=== PATIENT | male | born 1955 | race Caucasian/White ===

== ENCOUNTER 2021-03-07 22:19 | Emergency (ER) | payer OTHER ==
[2021-03-07 22:57] LABS: Absolute Neutrophil Ct (ANC) 5.05 (1.4-6.9); BASOPHIL % 0.2 % (0.0-0.4); Basophil (Absolute #) 0.02 (0-0.4); Eosinophil % 3.4 % (0.00-5.0); Eosinophil (Absolute #) 0.31 (0-0.5); Hematocrit 42.5 % (42-50); Hemoglobin 14.1 gm/dl (12.5-18.0); Lymphocyte (Absolute #) 2.63 (1.0-4.6); Lymphocytes % 28.8 % (24.0-44.0); Mean Cell Volume 90.6 fl (78-100); Mean Corpuscular Hemoglobin 30.1 pg (26-32); Mean Corpuscular Hgb Concent. 33.2 g/dl (32-36); Monocyte (Absolute #) 1.11 (0.0-1.3); Monocytes % 12.2 % (0.0-12.0); Neutrophil % 55.4 % (36.0-66.0); Platelet Count 229 K/mm3 (150-450); Red Blood Count 4.69 M/mm3 (4.1-5.6); Red Cell Distribution Width 13.6 % (11.5-14.0); White Blood Count 9.1 K/mm3 (4.0-10.5)
[2021-03-07 23:00] LABS: Appearance CLEAR (CLEAR); Bilirubin NEGATIVE (NEGATIVE); Blood NEGATIVE Ery/ul (0-5); Glucose NEGATIVE (NEGATIVE); Ketones NEGATIVE (NEGATIVE); Leukocyte Esterase NEGATIVE (NEGATIVE); Nitrite NEGATIVE (NEGATIVE); Protein,Urine Dip NEGATIVE (Negative); Specific Gravity 1.001 (1.005-1.025); Urobilinogen NEGATIVE mg/dL (0-1)
[2021-03-07 23:05] LABS: Bacteria NONE SEEN /HPF (NEGATIVE)
--- NOTE | 2021-03-07 23:06 | ERPHSYRPT ---
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 According to his today patient has been confused since all day. Patient also does not remember what he did 10 minutes ago. All the symptoms started around 9:30 PM today and his got concerned so he brought him to the emergency room. In the emergency room patient is alert awake oriented denies any symptoms denies any motor or sensory weakness. Timing/Duration: today Severity: mild Character of Deficits: none Deficits: no difficulties Baseline/Normal Cognition: alert oriented x 3 Current Cognition: alert but confused Associated Symptoms: denies symptoms Allergies/Adverse Reactions: No Known Drug Allergies Allergy (Verified 03/07/21 22:36) Home Medications: ALPRAZolam 0.25 MG [xanAX 0.25 MG] 0.37 mg PO DAILY 11/03/15 [History] Amlodipine Besylate/Benazepril [Amlodipine-Benazepril 5-20 mg] 1 ea PO DAILY 11/03/15 [History] Aspirin 81 mg PO DAILY 11/03/15 [History] Atorvastatin Calcium [Lipitor] 20 mg PO HS 11/03/15 [History] Clopidogrel Bisulfate 75 mg [PLAVIX 75 MG Tablet] 75 mg PO DAILY 11/03/15 [History] Metoprolol Tartrate 25 mg [Lopressor 25MG Tab] 25 mg PO DAILY 11/03/15 [History] Hx Tetanus, Diphtheria Vaccination/Date Given: No Hx Influenza Vaccination/Date Given: No Hx Pneumococcal Vaccination/Date Given: No Travel Risk - International Travel Have you traveled outside of the country in past 3 weeks: No - Coronavirus Screening Are you exhibiting any of the following symptoms?: No Close contact with a COVID-19 positive Pt in past 14-21 Days: No - Vaccine Status Have you recieved a Covid-19 vaccination: Yes [employer]p G[employer]herer: Moderna - Vaccination Dates Date of 2cond Vaccination (if applicable): unknown - Review of Systems Constitutional: No Fever, No Chills Eyes: No Symptoms Ears, Nose, & Throat: No Symptoms Respiratory: No Cough, No Dyspnea Cardiac: No Chest Pain, No Edema, No Syncope Abdominal/Gastrointestinal: No Abdominal Pain, No Nausea, No Vomiting, No Diarrhea Genitourinary Symptoms: No Dysuria Musculoskeletal: No Back Pain, No Neck Pain Skin: No Rash Neurological: Other (confusion), No Dizziness, No Focal Weakness, No Sensory Changes Psychological: No Symptoms Endocrine: No Symptoms All Other Systems: Reviewed and Negative - Past Medical History Pertinent Past Medical History: Yes Neurological History: No Pertinent History ENT History: No Pertinent History Cardiac History: High Cholesterol, Hypertension, Myocardial Infarction (OR) Respiratory History: No Pertinent History Endocrine Medical History: No Pertinent History Musculoskeletal History: No Pertinent History GI Medical History: Polyps History: No Pertinent History Psycho-Social History: No Pertinent History Male Reproductive Disorders: No Pertinent History - Past Surgical History Past Surgical History: Yes Cardiac: Cardiac Catheterization, Cardiac Stent Respiratory: No Pertinent History Gastrointestinal: No Pertinent History, Other Genitourinary: No Pertinent History Musculoskeletal: No Pertinent History Male Surgical History: No Pertinent History Other Surgical History: colonoscopy with polyps removed - Social History Smoking Status: Former smoker Exposure to second hand smoke: No Drug Use: none Patient Lives Alone: No - Nursing Vital Signs Nursing Vital Signs: Initial Vital Signs Temperature 98.6 F 03/07/21 22:37 Pulse Rate 102 H 03/07/21 22:37 Respiratory Rate 20 03/07/21 22:37 Blood Pressure 157/85 03/07/21 22:37 O2 Sat by Pulse Oximetry 97 03/07/21 22:37 - [place] Coma Scale Best Eye Response ([place]): (4) open spontaneously Best Verbal Response ([place]): (5) oriented Best Motor Response ([place]): (6) obeys commands [place] Total: 15 - Physical Exam General Appearance: no apparent distress, alert Eye Exam: bilateral eye: PERRL, EOMI Ears, Nose, Throat Exam: normal ENT inspection, moist mucous membranes Neck Exam: normal inspection, non-tender, supple Respiratory: normal breath sounds, lungs clear, airway intact, No respiratory distress Cardiovascular: regular rate/rhythm, No edema Gastrointestinal: soft, No tenderness, No distention Back Exam: normal inspection Extremity Exam: normal inspection, No pedal edema 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: 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, 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 Coordination/Gait: normal finger to nose, normal gait Skin Exam: normal color, warm, dry, No rash SpO2: 97 - Course Nursing assessment & vital signs reviewed: Yes EKG Interpreted by Me: Sinus Rhythm Rhythm Strip: Normal Sinus Rhythm - CT Exams Head CT Interpretation: Tele-radiologist Report (no acute findings) Ordered Tests: Active Orders 24 hr Category Date Time Status EKG-ER Only STAT Care 03/07/21 22:47 Active CHEST 2 VIEWS (PA AND LAT) Stat Exams 03/07/21 22:52 Taken HEAD WITHOUT CONTRAST [CT] Stat Exams 03/07/21 22:51 Taken CBC W DIFF Stat Lab 03/07/21 22:53 Completed CMP Stat Lab 03/07/21 22:53 Completed TROPONIN Q3H Lab 03/07/21 22:53 Completed TROPONIN Q3H Lab 03/08/21 02:00 Ordered TROPONIN Q3H Lab 03/08/21 05:00 Ordered TROPONIN Q3H Lab 03/08/21 08:00 Ordered TROPONIN Q3H Lab 03/08/21 11:00 Ordered UA W/RFX UR CULTURE Stat Lab 03/07/21 22:53 Completed Lab/Rad Data: Laboratory Result Diagrams 03/07/21 22:53 03/07/21 22:53 Laboratory Results 03/07/21 03/07/21 03/07/21 Range/Units 22:53 22:53 22:53 WBC (4.0-10.5) K/mm3 RBC (4.1-5.6) M/mm3 Hgb (12.5-18.0) gm/dl Hct (42-50) % MCV (78-100) fl MCH (26-32) pg MCHC (32-36) g/dl RDW (11.5-14.0) % Plt Count (150-450) K/mm3 MPV (7.5-11.0) fl Gran % (36.0-66.0) % Eos # (Auto) (0-0.5) Absolute Lymphs (auto) (1.0-4.6) Absolute Monos (auto) (0.0-1.3) Lymphocytes % (24.0-44.0) % Monocytes % (0.0-12.0) % Eosinophils % (0.00-5.0) % Basophils % (0.0-0.4) % Absolute Granulocytes (1.4-6.9) Basophils # (0-0.4) Sodium 139 (137-145) mmol/L Potassium 3.8 (3.5-5.1) mmol/L Chloride 104 (98-107) mmol/L Carbon Dioxide 24 (22-30) mmol/L Anion Gap 15.2 H (5-15) MEQ/L BUN 14 (9-20) mg/dL Creatinine 0.78 (0.66-1.25) mg/dL Estimated GFR > 60.0 ML/MIN Glucose 123 H (74-106) mg/dL Calcium 9.2 (8.4-10.2) mg/dL Total Bilirubin 0.40 (0.2-1.3) mg/dL AST 23 (17-59) U/L ALT 26 (0-50) U/L Alkaline Phosphatase 112 (38-126) U/L Troponin I < 0.012 (0.000-0.034) ng/mL Serum Total Protein 7.9 (6.3-8.2) g/dL Albumin 4.4 (3.5-5.0) g/dL Urine Color COLORLESS (YELLOW) Urine Appearance CLEAR (CLEAR) Urine pH 7.0 (5-6) Ur Specific [place] 1.001 (1.005-1.025) Urine Protein NEGATIVE (Negative) Urine Ketones NEGATIVE (NEGATIVE) Urine Blood NEGATIVE (0-5) Lm/ul Urine Nitrite NEGATIVE (NEGATIVE) Urine Bilirubin NEGATIVE (NEGATIVE) Urine Urobilinogen NEGATIVE (0-1) mg/dL Ur Leukocyte Esterase NEGATIVE (NEGATIVE) Urine WBC (Auto) NONE (0-5) /HPF Urine RBC (Auto) NONE (0-2) /HPF U Epithel Cells (Auto) NONE (FEW) /HPF Urine Bacteria (Auto) NONE SEEN (NEGATIVE) /HPF Urine Culture Reflexed NO (NO) Urine Glucose NEGATIVE (NEGATIVE) mg/dL 03/07/21 Range/Units 22:53 WBC 9.1 (4.0-10.5) K/mm3 RBC 4.69 (4.1-5.6) M/mm3 Hgb 14.1 (12.5-18.0) gm/dl Hct 42.5 (42-50) % MCV 90.6 (78-100) fl MCH 30.1 (26-32) pg MCHC 33.2 (32-36) g/dl RDW 13.6 (11.5-14.0) % Plt Count 229 (150-450) K/mm3 MPV 9.0 (7.5-11.0) fl Gran % 55.4 (36.0-66.0) % Eos # (Auto) 0.31 (0-0.5) Absolute Lymphs (auto) 2.63 (1.0-4.6) Absolute Monos (auto) 1.11 (0.0-1.3) Lymphocytes % 28.8 (24.0-44.0) % Monocytes % 12.2 H (0.0-12.0) % Eosinophils % 3.4 (0.00-5.0) % Basophils % 0.2 (0.0-0.4) % Absolute Granulocytes 5.05 (1.4-6.9) Basophils # 0.02 (0-0.4) Sodium (137-145) mmol/L Potassium (3.5-5.1) mmol/L Chloride (98-107) mmol/L Carbon Dioxide (22-30) mmol/L Anion Gap (5-15) MEQ/L BUN (9-20) mg/dL Creatinine (0.66-1.25) mg/dL Estimated GFR ML/MIN Glucose (74-106) mg/dL Calcium (8.4-10.2) mg/dL Total Bilirubin (0.2-1.3) mg/dL AST (17-59) U/L ALT (0-50) U/L Alkaline Phosphatase (38-126) U/L Troponin I (0.000-0.034) ng/mL Serum Total Protein (6.3-8.2) g/dL Albumin (3.5-5.0) g/dL Urine Color (YELLOW) Urine Appearance (CLEAR) Urine pH (5-6) Ur Specific [place] (1.005-1.025) Urine Protein (Negative) Urine Ketones (NEGATIVE) Urine Blood (0-5) Lm/ul Urine Nitrite (NEGATIVE) Urine Bilirubin (NEGATIVE) Urine Urobilinogen (0-1) mg/dL Ur Leukocyte Esterase (NEGATIVE) Urine WBC (Auto) (0-5) /HPF Urine RBC (Auto) (0-2) /HPF U Epithel Cells (Auto) (FEW) /HPF Urine Bacteria (Auto) (NEGATIVE) /HPF Urine Culture Reflexed (NO) Urine Glucose (NEGATIVE) mg/dL - Progress Progress: improved, re-examined (no neuro deficits) Counseled pt/family regarding: lab results, diagnosis, need for follow-up (with Dr Bishop on tuesday), rad results - Departure Departure Disposition: Home Clinical Impression: TIA (transient ischemic attack) Condition: Stable Critical Care Time: Yes Critical Care Time(excluding separately billable procedures): Critical 30-74 mins Referrals: MARIETTA BISHOP MD [Primary Care Provider] - Follow Up with PCP/3 days (follow up on tuesday for further work up including MRI.) Instructions: Transient Ischemic Attack (DC) Additional Instructions: You were seen in the emergency room for confusion. We have done complete blood count comprehensive metabolic panel troponin EKG chest x-ray as well as CT of the head and are all unremarkable. So with your presentation to the emergency room it appears that you have a mini strokelike features that call transient ischemic attack and has resolved while you came to the ER. At this point of time you do not have any focal neurological deficit but it is important that you follow-up with your primary care physician on Tuesday and you will require further work-up to prevent future episodes. So please make an appointment on Tuesday and see your primary care physician. Discharge/Care Plan VIANEY TAN was seen on 03/07/21 in the Emergency Room. The patient was counseled regarding Diagnosis,Lab results, Imaging studies, need for follow up and when to return to the Emergency Room. Prescriptions given: Discharge Note I have spoken with the patient and/or caregivers. I have explained the patient's condition, diagnosis and treatment plan based on the information available to me at this time. I have answered the patient's and/or caregiver's questions and addressed any concerns. The patient and/or caregivers have as good understanding of the patient's diagnosis, condition and treatment plan as can be expected at this point. The vital signs have been stable. The patient's condition is stable and appropriate for discharge from the emergency department. The patient will pursue further outpatient evaluation with the primary care physician or other designated or consulting physician as outlined in the discharge instructions. The patient and/or caregivers are agreeable to this plan of care and follow-up instructions have been explained in detail. The patient and/or caregivers have received these instruction. The patient/and or caregivers are aware that any significant change in condition or worsening of symptoms should prompt an immediate return to this or the closest emergency department or call 911. ERNESTOVIANEY PALENCIA was seen on 03/07/21 n the Emergency Room. At that time you were treated for an emergent condition, during your visit Laboratory, Radiology and/or other procedures may have been ordered. It is very important that you follow-up with your Primary Care Physician MARIETTA BISHOP within the next 24- 48 hours to review your Emergency Room visit and the final results of testing that was ordered. Some test results such as Urine Cultures, Blood Cultures, and other cultures if ordered will not be finalized for 24-48 hours. If you do not have a Primary Care Provider please call the medical records department at [phone] ext [phone] to obtain a copy of your results or you may sign into our patient portal to obtain these results by visiting us @ [email or web address] and completing the following steps: 1. Click on the Patient Portal link 2. Click the Patient Self Enrollment Link to complete the enrollment form and entering your 3. Once the enrollment form is completed you will receive an email with a temporary ID and password at the email address you provided. 4. Next choose a user name and password. Your user name must be at least 4 characters long and your password must be at least 4 characters long. 5. Choose a security question from the list and provide your answer to the question. If you already have signed into the Health Portal you may access your Health Care Information 15/11 by the following steps: 1. Login to our website @ [email or web address] 2. Enter your original user name and password. FAQS The [facility] Health Portal is an online tool that contains your Lab Results, Radiology Reports, Visit History, Discharge Instructions and Health Summary Lab and Radiology Results will not be available for 72 hours on the portal. The Portal is a secure site, passwords are encryted and URLs are re-written so they cannot be copied and pasted. You and authorized family members are the only ones who can access your Portal. Also there is a timeout feature that protects your information if you leave the Portal page open. If you have technical difficulty please use the Contact Us link on the page this will allow you to submit any questions you have regarding the Portal or you may contact the Medical Record Department at [phone].
[2021-03-07 23:08] LABS: ALBUMIN 4.4 g/dL (3.5-5.0); ALKALINE PHOSPHATASE 112 U/L (38-126); ANION GAP 15.2 MEQ/L (5-15); BLOOD UREA NITROGEN 14 mg/dL (9-20); CHLORIDE 104 mmol/L (98-107); Calcium 9.2 mg/dL (8.4-10.2); Carbon Dioxide 24 mmol/L (22-30); Creatinine 1 0.78 mg/dL (0.66-1.25); EST GLOMERULAR FILTRATION RATE > 60.0 ML/MIN; Glucose 123 mg/dL (74-106); Potassium 3.8 mmol/L (3.5-5.1); SGOT/AST 23 U/L (17-59); SGPT/ALT 26 U/L (0-50); SODIUM 139 mmol/L (137-145); Total Protein 7.9 g/dL (6.3-8.2)
--- NOTE | 2021-03-08 08:10 | XRAY ---
Indication: Confusion. Comparison: None PA/lateral chest obtained. Posterior gutters not included on lateral view. Visualized lungs hyperinflated and clear. Heart and mediastinal structures within normal limits. Bony thorax intact with mild degenerative changes. Impression: Limited nonacute hyperinflated chest.
--- NOTE | 2021-03-08 08:10 | XRAY ---
Indication: Confusion. Multiple contiguous axial images obtained through the head without contrast. Comparison: None Age-appropriate global atrophy. No acute intracranial hemorrhage, abnormal extra-axial fluid collection, or mass effect. Fourth ventricle is midline without hydrocephalus. Bony calvarium intact. Visualized paranasal sinuses and mastoid air cells are clear. Impression: Negative CT head without contrast exam. Comment: Preliminary interpretation made by [facility]. No critical discrepancy.
== END 2021-03-07 23:55 | disposition home or self-care (01) ==
LOC: ED 22:19
DX: G45.9 Transient cerebral ischemic attack, unspecified (principal); Z79.82 Long term (current) use of aspirin; Z79.899 Other long term (current) drug therapy; I25.10 Atherosclerotic heart disease of native coronary artery without angina pectoris; I10 Essential (primary) hypertension; Z95.1 Presence of aortocoronary bypass graft; Z87.891 Personal history of nicotine dependence; Z79.01 Long term (current) use of anticoagulants
CPT/HCPCS: 36000; 36415; 70450; 71046; 80053; 81001; 84484; 85025; 93005; 99284; 99291

== ENCOUNTER 2022-01-07 05:53 | Day surgery (SDC) | payer BC, OTHER ==
[2022-01-07] MEDS ORDERED: Lactated Ringers 1,000 ML IV SCH (06:30)
[2022-01-07] MEDS ORDERED: DIPRIVAN 200 MG/20 ML IV ONE ×2 (07:32→07:58)
[2022-01-07] MEDS ORDERED: Xylocaine-Mpf 2% 5 Ml Vial ONE (07:32)
[2022-01-07 09:06] VITALS: BP 153/86; PULSE 68; O2SAT 97
--- NOTE | 2022-01-07 10:34 | OP ---
SURGERY DATE/TIME: 01/07/2022 0742 PREOPERATIVE DIAGNOSIS: History of colon polyps. POSTOPERATIVE DIAGNOSES: 1) Colon polyps x2. 2) Mild colitis in the ascending colon. PROCEDURE: Colonoscopy. SURGEON: Mike Mtz M.D. ANESTHESIA: MAC by Adán Land CRNA. ESTIMATED BLOOD LOSS: Minimal. SPECIMENS: There were two hot forceps polypectomies, one from the splenic flexure, one from the transverse colon and random cold forceps biopsy of the ascending colon from area of colitis. DESCRIPTION OF PROCEDURE: After informed written consent was obtained, the patient was taken to the endoscopy suite. He had anesthesia was titrated to desired level of consciousness. Digital rectal exam showed normal sphincter tone and no internal lesions. The scope was inserted into the rectum and sequentially the entire colonic mucosa was traversed. The level of cecum was reached and verified with direct visualization of the ileocecal valve. Upon withdrawal careful mucosal inspection revealed a sessile polyp in the transverse colon which was grasped with forceps, cauterized and removed in its entirety. The same was performed on a polyp in the splenic flexure level upon entry. There were also some nonspecific inflammatory changes in the segment of the ascending colon. Cold forceps biopsies were taken from lead customer service representative area. There was no bleeding, no ulceration or other suspicious lesions. Prior to withdrawal retroflexion showed no internal lesions. The scope was removed. The patient was transferred to the recovery room in good condition.
== END 2022-01-07 09:07 | disposition home or self-care (01) ==
LOC: SDC 05:53
PROVIDERS: ATTEND Family Medicine
DX: Z09 Encounter for follow-up examination after completed treatment for conditions other than malignant neoplasm (principal); Z86.010 Personal history of colon polyps; K63.5 Polyp of colon; K52.9 Noninfective gastroenteritis and colitis, unspecified
CPT/HCPCS: J2704

== ENCOUNTER 2023-12-27 06:28 | Observation (INO) | payer BC ==
[2023-12-27] MEDS ORDERED: solu-MEDROL ONE (06:55)
[2023-12-27] MEDS ORDERED: Sterile H2O 10 ml IJ ONE ×2 (06:55→17:58)
[2023-12-27] MEDS: solu-MEDROL 125 MG, Sterile H2O 10 ml 2 ML IV ONE (06:55)
--- NOTE | 2023-12-27 06:58 | ERPHSYRPT ---
- History of Present Illness Time Seen by Provider: 12/27/23 06:53 Source: patient Exam Limitations: no limitations Patient Subjective Stated Complaint: pt states he has been having shortness of breath since last night. states he has gas in his stomach and has trouble taking a deep breath. denies pain, but states he does have pressure in the epigastric area. has an occasional non productive cough that started yesterday. Triage Nursing Assessment: pt alert and oriented, answers questions approp. pt ambualtes into room with steady gait. pt short of breath on arrival. o2 sat 86 on room air and increaed to 94 on 3l per nasal can. lung sounds clear on lt, diminished and fine crackles noted on rt. Physician History: Patient is a 68-year-old male presents to our emergency department for evaluation of shortness of breath. Shortness of breath started yesterday at approximately 7 PM after using bleach to clean the basement. Patient had dinner after cleaning so he attributed his shortness of breath to stomach gas. Shortness of breath has been continuous. Patient awoke early this morning with shortness of breath. Upon arrival to emergency department patient was hypoxic. Patient was placed on 2 L nasal cannula and shortness of breath improved. No associated chest pain. No nausea vomiting or diaphoresis. Symptoms are constant. Symptoms are moderate in intensity. Activity worsens symptoms. at bedside. They voiced no other complaints or concerns at this time. Portions of this note were created with voice recognition technology. There may be grammatical, spelling, punctuation or sound alike errors Timing/Duration: yesterday Activities at Onset: activity Severity of Dyspnea-Max: moderate Severity of Dyspnea-Current: moderate Possible Cause: irritant gases exposure Modifying Factors: Improves With: activity Associated Symptoms: denies symptoms Allergies/Adverse Reactions: No Known Drug Allergies Allergy (Verified 12/27/23 06:51) Home Medications: ALPRAZolam 0.25 MG [xanAX 0.25 MG] 0.25 mg PO TID PRN 11/03/15 [History] Amlodipine Besylate/Benazepril [Amlodipine-Benazepril 5-20 mg] 1 ea PO DAILY 11/03/15 [History] Aspirin 81 mg PO DAILY 11/03/15 [History] Atorvastatin Calcium [Lipitor] 20 mg PO HS 11/03/15 [History] Metoprolol Tartrate 25 mg [Lopressor 25MG Tab] 25 mg PO DAILY 11/03/15 [History] Ascorbic Acid [Vitamin C] 1,000 mg PO DAILY 12/29/21 [History] Cholecalciferol (Vitamin D3) [Vitamin D3] 125 mcg PO DAILY 12/29/21 [History] Multivit-Min/FA/Lycopen/Lutein [Centrum Silver Tablet] 1 each PO DAILY 12/29/21 [History] Saw [place] 450 mg PO DAILY 12/29/21 [History] Zinc Gluconate [Zinc] 50 mg PO DAILY 12/29/21 [History] Hx Tetanus, Diphtheria Vaccination/Date Given: No Hx Influenza Vaccination/Date Given: No Hx Pneumococcal Vaccination/Date Given: No Immunizations Up to Date: No Travel Risk - International Travel Have you traveled outside of the country in past 3 weeks: No - Emerging Infectious Disease Are you exhibiting symptoms associated with any current EIDs: Yes Symptoms: Cough: New Onset, Shortness of Breath - Review of Systems Constitutional: No Symptoms, No Fever, No Chills Eyes: No Symptoms Ears, Nose, & Throat: No Symptoms Respiratory: No Symptoms, No Cough, No Dyspnea Cardiac: No Symptoms, No Chest Pain, No Edema, No Syncope Abdominal/Gastrointestinal: No Symptoms, No Abdominal Pain, No Nausea, No Vomit ing, No Diarrhea Genitourinary Symptoms: No Symptoms, No Dysuria Musculoskeletal: No Symptoms, No Back Pain, No Neck Pain Skin: No Symptoms, No Rash Neurological: No Symptoms, No Dizziness, No Focal Weakness, No Sensory Changes Psychological: No Symptoms Endocrine: No Symptoms Hematologic/Lymphatic: No Symptoms Immunological/Allergic: No Symptoms All Other Systems: Reviewed and Negative - Past Medical History Pertinent Past Medical History: Yes Neurological History: No Pertinent History, Other ENT History: No Pertinent History Cardiac History: High Cholesterol, Hypertension, Myocardial Infarction (MT) Respiratory History: No Pertinent History Endocrine Medical History: No Pertinent History Musculoskeletal History: No Pertinent History, Osteoarthritis GI Medical History: Polyps History: No Pertinent History Psycho-Social History: No Pertinent History Male Reproductive Disorders: No Pertinent History Other Medical History: PMH: BOARDERLINE DM. neuro- transient global. PSH: NONE - Past Surgical History Past Surgical History: Yes Cardiac: Cardiac Catheterization, Cardiac Stent Respiratory: No Pertinent History Gastrointestinal: No Pertinent History, Other Genitourinary: No Pertinent History Musculoskeletal: No Pertinent History Male Surgical History: No Pertinent History Other Surgical History: colonoscopy with polyps removed - Social History Smoking Status: Former smoker Exposure to second hand smoke: No Drug Use: none Patient Lives Alone: No - Social Determinants of Health Will the patient participate in the screening: Yes Do you worry about a steady place to live?: No Do you have any problems with any of the following?: No known problems In the past 12 months,have you had to go without utilities?: No Transportation Issues: No Has anyone in your support network made you feel unsafe?: No Have you or anyone in your house had to go without enough: No - Nursing Vital Signs Nursing Vital Signs: Initial Vital Signs Temperature 98.3 F 12/27/23 06:33 Pulse Rate 103 H 12/27/23 06:33 Respiratory Rate 18 12/27/23 06:33 Blood Pressure 138/78 12/27/23 06:33 O2 Sat by Pulse Oximetry 86 L 12/27/23 06:33 Pain Scale Pain Intensity 2 - Physical Exam General Appearance: no apparent distress, alert Eye Exam: PERRL/EOMI, eyes nml inspection Ears, Nose, Throat Exam: hearing grossly normal Neck Exam: normal inspection, supple, full range of motion Respiratory Exam: airway intact, diminished breath sounds, crackles/rales (Crackles right lung field. Diminished breath sounds throughout), No respiratory distress Cardiovascular/Chest Exam: normal heart sounds, regular rate/rhythm Abdominal/Gastrointestinal Exam: soft, No tenderness, No distention, No mass Extremity Exam: non-tender, normal range of motion, normal inspection, no calf tenderness, no pedal edema Neurologic Exam: alert, oriented x 3, cooperative, voucher examiner II-XII nml as tested, normal mood/affect, sensation nml, No motor deficits Skin Exam: normal color, warm, No dry SpO2 Interpretation: normal SpO2: 94 O2 Delivery: Room Air - Course Nursing assessment & vital signs reviewed: Yes EKG Interpreted by Me: RATE (105), Sinus Tach, NORMAL AXIS, NORMAL INTERVALS, NORMAL QRS Ordered Tests: Active Orders 24 hr Category Date Time Status Flight Attendant STAT Care 12/27/23 06:52 Active EKG-ER Only STAT Care 12/27/23 06:51 Active IV Insertion STAT Care 12/27/23 06:51 Active Pulse Oximetry (ED) STAT Care 12/27/23 06:51 Active CHEST WITH CONTRAST [CT] Stat Exams 12/27/23 07:49 Completed BLOOD CULTURE Stat Lab 12/27/23 07:14 Received CBC W DIFF Stat Lab 12/27/23 06:55 Completed CMP Stat Lab 12/27/23 06:55 Completed D-DIMER QUANTITATIVE Stat Lab 12/27/23 06:55 Completed TROPONIN Q4H Lab 12/27/23 06:55 Completed TROPONIN Q4H Lab 12/27/23 11:00 Received TROPONIN Q4H Lab 12/27/23 15:00 Ordered Respiratory Therapy Assessment DAILY RT 12/27/23 07:09 Active Transfer Order Routine Transfer 12/27/23 Ordered Medication Summary Discontinued Medications Generic Name Dose Route Start Last Admin Trade Name Freq PRN Reason Stop Dose Admin Albuterol Sulfate 2.5 mg 12/27/23 06:51 12/27/23 07:06 Albuterol Sulfate 2.5 Mg/3 Ml Neb IH 12/27/23 06:52 2.5 mg STAT ONE Administration Albuterol Sulfate Confirm 12/27/23 07:04 Albuterol Sulfate 2.5 Mg/3 Ml Neb Administered 12/27/23 07:05 Dose 2.5 mg IH .STK-MED ONE Methylprednisolone Sodium 0 mg 12/27/23 06:51 12/27/23 06:55 Succinate 125 mg/ Sterile IV 12/27/23 06:52 125 mg Water 2 ml STAT ONE Administration Famotidine 20 mg 12/27/23 07:01 12/27/23 07:15 Famotidine 20 Mg/1 Vial IV 12/27/23 07:02 20 mg STAT ONE Administration Famotidine Confirm 12/27/23 07:13 Famotidine 20 Mg/1 Vial Administered 12/27/23 07:14 Dose 20 mg IV .STK-MED ONE Ceftriaxone Sodium 2 gm in 100 mls @ 200 mls/hr 12/27/23 09:46 12/27/23 10:53 Rocephin 2 Gm/100 Ml Nacl IV 12/27/23 10:15 200 ml/hr STAT ONE 200 mls/hr Administration Azithromycin 500 mg in 250 mls @ 250 mls/hr 12/27/23 09:46 12/27/23 10:48 Zithromax 500 Mg/ 250 Ml Nacl Premix IV 12/27/23 10:45 250 ml/hr STAT STA 250 mls/hr Administration Ceftriaxone Sodium Confirm 12/27/23 09:59 Rocephin 2 Gm/100 Ml Nacl Administered 12/27/23 10:00 Dose 2 gm in 100 mls @ ud IV .STK-MED ONE Azithromycin Confirm 12/27/23 10:46 Zithromax 500 Mg/ 250 Ml Nacl Premix Administered 12/27/23 10:47 Dose 500 mg in 250 mls @ ud IV .STK-MED ONE Methylprednisolone Sodium Succinate Confirm 12/27/23 06:55 Methylprednis Sod Succ 125 Mg/2 Ml Vial Administered 12/27/23 06:56 Dose 125 mg .ROUTE .STK-MED ONE Sterile Water Confirm 12/27/23 06:55 Water For Injection,Sterile 10 Ml Vial Administered 12/27/23 06:56 Dose 10 ml IJ .STK-MED ONE Lab/Rad Data: Laboratory Result Diagrams 12/27/23 06:55 12/27/23 06:55 Laboratory Results 12/27/23 12/27/23 12/27/23 Range/Units 07:14 06:55 06:55 WBC (4.23-9.07) x10^3/uL RBC (4.63-6.08) x10^6/uL Hgb (13.7-17.5) g/dL Hct (40.1-51.0) % MCV (79.0-92.2) fL MCH (25.7-32.2) pg MCHC (32.3-36.5) g/dL RDW (11.6-14.4) % Plt Count (163-337) x10^3/uL MPV (9.4-12.4) fL Gran % (34.0-67.9) % Immature Gran % (Auto) (0.001-0.429) % Nucleat RBC Rel Count (0.00-0.2) % Eos # (Auto) (0.04-0.54) x10^3/uL Immature Gran # (Auto) (0.001-0.031) x10^3u/L Absolute Lymphs (auto) (1.32-3.57) x10^3/uL Absolute Monos (auto) (0.30-0.82) x10^3/uL Absolute Nucleated RBC (0.00-0.012) x10^3u/L Lymphocytes % (21.8-53.1) % Monocytes % (5.3-12.2) % Eosinophils % (0.8-7.0) % Basophils % (0.2-1.2) % Absolute Granulocytes (1.78-5.38) x10^3/uL Basophils # (0.01-0.08) x10^3/uL D-Dimer 0.64 H* (0.0-0.50) mg/L Sodium (135-145) mmol/L Potassium (3.5-5.1) mmol/L Chloride (98-107) mmol/L Carbon Dioxide (22-30) mmol/L Anion Gap (5-15) MEQ/L BUN (9-20) mg/dL Creatinine (0.66-1.25) mg/dL Estimated GFR ML/MIN Glucose (74-106) mg/dL Calcium (8.4-10.2) mg/dL Total Bilirubin (0.2-1.3) mg/dL AST (17-59) U/L ALT (0-50) U/L Alkaline Phosphatase (38-126) U/L Troponin I < 0.012 (0.000-0.033) ng/mL Serum Total Protein (6.3-8.2) g/dL Albumin (3.5-5.0) g/dL Influenza Type A Ag NEGATIVE (NEGATIVE) Influenza Type B Ag NEGATIVE (NEGATIVE) RSV (PCR) NEGATIVE (NEGATIVE) SARS-CoV-2 (PCR) NEGATIVE (NEGATIVE) 12/27/23 12/27/23 Range/Units 06:55 06:55 WBC 14.1 H (4.23-9.07) x10^3/uL RBC 4.68 (4.63-6.08) x10^6/uL Hgb 13.9 (13.7-17.5) g/dL Hct 40.9 (40.1-51.0) % MCV 87.4 (79.0-92.2) fL MCH 29.7 (25.7-32.2) pg MCHC 34.0 (32.3-36.5) g/dL RDW 13.2 (11.6-14.4) % Plt Count 244 (163-337) x10^3/uL MPV 9.7 (9.4-12.4) fL Gran % 83.0 H (34.0-67.9) % Immature Gran % (Auto) 0.4 (0.001-0.429) % Nucleat RBC Rel Count 0.0 (0.00-0.2) % Eos # (Auto) 0.06 (0.04-0.54) x10^3/uL Immature Gran # (Auto) 0.06 H (0.001-0.031) x10^3u/L Absolute Lymphs (auto) 1.21 L (1.32-3.57) x10^3/uL Absolute Monos (auto) 1.03 H (0.30-0.82) x10^3/uL Absolute Nucleated RBC 0.00 (0.00-0.012) x10^3u/L Lymphocytes % 8.6 L (21.8-53.1) % Monocytes % 7.3 (5.3-12.2) % Eosinophils % 0.4 L (0.8-7.0) % Basophils % 0.3 (0.2-1.2) % Absolute Granulocytes 11.72 H (1.78-5.38) x10^3/uL Basophils # 0.04 (0.01-0.08) x10^3/uL D-Dimer (0.0-0.50) mg/L Sodium 139 (135-145) mmol/L Potassium 3.8 (3.5-5.1) mmol/L Chloride 105 (98-107) mmol/L Carbon Dioxide 22 (22-30) mmol/L Anion Gap 15.2 H (5-15) MEQ/L BUN 15 (9-20) mg/dL Creatinine 0.88 (0.66-1.25) mg/dL Estimated GFR 93.7 ML/MIN Glucose 170 H (74-106) mg/dL Calcium 9.5 (8.4-10.2) mg/dL Total Bilirubin 1.20 (0.2-1.3) mg/dL AST 30 (17-59) U/L ALT 26 (0-50) U/L Alkaline Phosphatase 110 (38-126) U/L Troponin I (0.000-0.033) ng/mL Serum Total Protein 7.5 (6.3-8.2) g/dL Albumin 4.2 (3.5-5.0) g/dL Influenza Type A Ag (NEGATIVE) Influenza Type B Ag (NEGATIVE) RSV (PCR) (NEGATIVE) SARS-CoV-2 (PCR) (NEGATIVE) - Progress Progress: improved Air Movement: good Progress Note: 68-year-old male presents to the emergency department for evaluation of shortness of breath. Physical exam reveals crepitation in the right lung field. Upon arrival patient was hypoxic. Supplemental oxygen placed. Patient is not require oxygen normally. Workup reveals a leukocytosis. D-dimer positive. CTA chest reveals no PE however there is a large left atrial mass versus artifact. Bilateral pleural effusions right greater than left. Bilateral airspace disease with a small hiatal hernia. Patient require hospitalization for antibiotic therapy, echocardiogram and further workup of the pleural effusion and his atrial mass. Plan of care discussed with patient. He agrees to admission [facility] for further evaluation and treatment. Portions of this note were created with voice recognition technology. There may be grammatical, spelling, punctuation or sound alike errors Complexity problem addressed is moderate acute complicated. No critical care time. Complexity of data reviewed and analyzed is extensive. Test ordered test reviewed results analyzed and correlated clinically with history and physical exam. Risk of complication and or risk of morbidity/mortality of patient management is high. Patient requires hospitalization for further evaluation and treatment. Vital stable. Time spent to admit patient approximately 20 minutes. Plan of care established for shared decision making. No social determinants of health present impede follow-up. Portions of this note were created with voice recognition technology. There may be grammatical, spelling, punctuation or sound alike errors 12/27/23 09:[address] Calero 11:28 AM 12/27/23 11:32 Blood Culture(s) Obtained: Yes Antibiotics given: No Counseled pt/family regarding: lab results, diagnosis, rad results - Departure Departure Disposition: Observation Clinical Impression: SOB (shortness of breath), Hypoxia, Atrial mass, Bilateral pneumonia, Leukocytosis, Pleural effusion Condition: Stable Critical Care Time: No Referrals: MARIETTA BISHOP MD [Primary Care Provider] - Follow up/PCP as directed
[2023-12-27] MEDS ORDERED: PROVENTIL 2.5 MG/3 ML NEB IH ONE (07:04)
[2023-12-27] MEDS: PROVENTIL 2.5 MG/3 ML NEB IH ONE (07:06)
[2023-12-27] MEDS ORDERED: Pepcid 20 MG VIAL IV ONE (07:13)
[2023-12-27] MEDS: Pepcid 20 MG VIAL IV ONE (07:15)
[2023-12-27 07:19] LABS: Absolute Neutrophil Ct (ANC) 11.72 x10^3/uL (1.78-5.38); BASOPHIL % 0.3 % (0.2-1.2); Basophil (Absolute #) 0.04 x10^3/uL (0.01-0.08); Eosinophil % 0.4 % (0.8-7.0); Eosinophil (Absolute #) 0.06 x10^3/uL (0.04-0.54); Hematocrit 40.9 % (40.1-51.0); Hemoglobin 13.9 g/dL (13.7-17.5); IMMATURE GRAN # 0.06 x10^3u/L (0.001-0.031); IMMATURE GRAN % 0.4 % (0.001-0.429); Lymphocyte (Absolute #) 1.21 x10^3/uL (1.32-3.57); Lymphocytes % 8.6 % (21.8-53.1); Mean Cell Volume 87.4 fL (79.0-92.2); Mean Corpuscular Hemoglobin 29.7 pg (25.7-32.2); Mean Platelet Volume 9.7 fL (9.4-12.4); Monocyte (Absolute #) 1.03 x10^3/uL (0.30-0.82); Monocytes % 7.3 % (5.3-12.2); Platelet Count 244 x10^3/uL (163-337); Red Blood Count 4.68 x10^6/uL (4.63-6.08); Red Cell Distribution Width 13.2 % (11.6-14.4); White Blood Count 14.1 x10^3/uL (4.23-9.07)
[2023-12-27 07:33] LABS: ALBUMIN 4.2 g/dL (3.5-5.0); ANION GAP 15.2 MEQ/L (5-15); BILIRUBIN,TOTAL 1.2 mg/dL (0.2-1.3); Calcium 9.5 mg/dL (8.4-10.2); Creatinine 1 0.88 mg/dL (0.66-1.25); EST GLOMERULAR FILTRATION RATE 93.7 ML/MIN; Potassium 3.8 mmol/L (3.5-5.1); Total Protein 7.5 g/dL (6.3-8.2)
[2023-12-27 07:59] LABS: INFLUENZA A NEGATIVE (NEGATIVE); INFLUENZA B NEGATIVE (NEGATIVE); RESPIRATORY SYNCTIAL VIRUS NEGATIVE (NEGATIVE); SARS-CoV-2 Xpert Express NEGATIVE (NEGATIVE)
--- NOTE | 2023-12-27 09:07 | XRAY ---
Indication: Short of breath. Elevated d-dimer. Multiple contiguous axial images obtained through the chest using 80 cc Isovue 370 contrast and PE protocol. Comparison: None Good opacification pulmonary arteries including lobar and segmental branches. Mild respiration artifact limits evaluation for pulmonary embolus. No obvious pulmonary embolus. Heart not enlarged. Query large left atrium mass versus artifact. Aorta is normal in course and caliber. No pathologic mediastinal/hilar lymphadenopathy. Small hiatal hernia. Lungs demonstrate diffuse patchy groundglass airspace disease greatest in both lower lobes. Also small bilateral pleural effusions, right greater than left. Bony thorax intact with mild/moderate degenerative changes throughout spine. Limited upper abdomen including adrenal glands are unremarkable. Impression: 1. Respiration artifact limits pulmonary embolus evaluation. No obvious pulmonary embolus. 2. Diffuse bilateral groundglass airspace disease with bilateral effusions. 3. Query large left atrium mass versus artifact. Echocardiogram recommended. 4. Chronic findings including hiatal hernia and multilevel degenerative spondylosis.
[2023-12-27] MEDS ORDERED: ROCEPHIN 2 GM/100 ML NACL 2 GM/100 ML IVPB IV ONE (09:59)
[2023-12-27] MEDS ORDERED: Zithromax 500 MG/ 250 ML NaCl Premix 500 MG/250 ML IVPB IV ONE (10:46)
[2023-12-27] MEDS: Zithromax 500 MG/ 250 ML NaCl Premix 500 MG/250 ML IVPB IV STA (10:48)
[2023-12-27] MEDS: ROCEPHIN 2 GM/100 ML NACL 2 GM/100 ML IVPB IV ONE (10:53)
--- NOTE | 2023-12-27 14:52 | PCM.HP ---
History of Present Illness - Chief Complaint Chief Complaint: Bilateral pneumonia, left atrial mass Date: 12/27/23 History of Present Illness: is a 68 year old male with a pmhx of [place], cardiac stents x 2, HTN, and HLD who presented to ED 12/27/23 with complaints of progressively worsening shortness of breath. Patient states onset was around 7 p.m last night. He states that he normally gets bloated after meals with some accompanying shortness of breath and thought this was the cause of the shortness of breath. Later that evening he began to experience chills and was awoken in the middle of the night unable to catch his breath. His pulse ox at home was registering his spo2 in the 70's which prompted to go to ED. Upon arrival to ED patient was hypoxic and tachycardic. CTA was negative for PE -demonstrating bilateral pleural effusion R>L. Diffuse bilateral groundglass airspace disease with bilateral effusions.Query large left atrium mass versus artifact. Echocardiogram recommended. Patient is RA at baseline and now requiring 2L of oxygen. Lab findings significant for leukocytosis with wbc at 14.1, GAP at 15.2. Resp. panel negative. DDimer 0.[address] negative for PE. Patient received Solumedrol, rocephin, and azithromycin in ED with noted improv ement. - Review of Systems Constitutional: Chills, Fatigue Eyes: No Symptoms Ears, Nose, & Throat: No Symptoms Respiratory: Cough, Short Of Breath Cardiac: No Symptoms Abdominal/Gastrointestinal: No Symptoms Genitourinary Symptoms: No Symptoms Musculoskeletal: No Symptoms Skin: No Symptoms Neurological: No Symptoms Psychological: No Symptoms Endocrine: No Symptoms Hematologic/Lymphatic: No Symptoms Immunological/Allergic: No Symptoms Medications & Allergies Home Medications: Home Medication List ALPRAZolam 0.25 MG [xanAX 0.25 MG] 0.25 mg PO Q8HPRN PRN 11/03/15 [History Confirmed 12/27/23] Amlodipine Besylate/Benazepril [Amlodipine-Benazepril 5-20 mg] 1 tab PO DAILY 11/03/15 [History Confirmed 12/27/23] Aspirin 81 mg PO HS 11/03/15 [History Confirmed 12/27/23] Atorvastatin Calcium [Lipitor] 20 mg PO HS 07/11/16 [History Confirmed 12/27/23] Metoprolol Tartrate 25 mg [Lopressor 25MG Tab] 25 mg PO DAILY 11/03/15 [History Confirmed 12/27/23] Ascorbic Acid [Vitamin C] 1,000 mg PO DAILY 12/29/21 [History Confirmed 12/27/23] Cholecalciferol (Vitamin D3) [Vitamin D3] 125 mcg PO DAILY 12/29/21 [History Confirmed 12/27/23] Multivit-Min/FA/Lycopen/Lutein [Centrum Silver Tablet] 1 tab PO DAILY 12/29/21 [History Confirmed 12/27/23] Saw [place] 450 mg PO DAILY 12/29/21 [History Confirmed 12/27/23] Zinc Gluconate [Zinc] 50 mg PO DAILY 12/29/21 [History Confirmed 12/27/23] Clopidogrel Bisulfate [PLAVIX Tablet] 75 mg PO HS 12/27/23 [History Confirmed 12/27/23] Ibuprofen 800 mg PO TIDPRN 12/27/23 [History Confirmed 12/27/23] Pantoprazole Sodium [Protonix] 40 mg PO DAILY 12/27/23 [History Confirmed 12/27/23] Allergies/Adverse Reactions: Allergies Allergy/AdvReac Type Severity Reaction Status Date / Time No Known Drug Allergies Allergy Verified 12/27/23 06:51 - Past Medical History Past Medical History: Yes Neurological History: No Pertinent History, Other ENT History: No Pertinent History Cardiac History: High Cholesterol, Hypertension, Myocardial Infarction ([place]) Respiratory History: No Pertinent History Endocrine Medical History: No Pertinent History Musculoskelatal History: No Pertinent History, Osteoarthritis GI Medical History: Hemorrhoids, Polyps History: No Pertinent History Pyscho-Social History: No Pertinent History Male Reproductive Disorders: No Pertinent History Comment: PMH: BORDERLINE DM. neuro- trans global amnesia. PSH: NONE - Past Surgical History Past Surgical History: Yes Cardiac History: Cardiac Catheterization, Cardiac Stent Respiratory Surgery: No Pertinent History GI Surgical History: No Pertinent History, Other Genitourinary Surgical Hx: No Pertinent History Musculskeletal Surgical Hx: No Pertinent History Male Surgical History: No Pertinent History Other Surgical History: colonoscopy with polyps removed - Social History Smoking Status: Former smoker Exposure to second hand smoke: No Alcohol: None Drug Use: none - Social Determinants of Health Will the patient participate in the screening: Yes Do you worry about a steady place to live?: No Do you have any problems with any of the following?: No known problems In the past 12 months,have you had to go without utilities?: No Have you or anyone in your house had to go without enough: No Transportation Issues: No Has anyone in your support network made you feel unsafe?: No Does the patient want assistance with any of the above?: No - Physical Exam Vital Signs: Vital Signs - 24 hr Temp Pulse Resp BP BP Pulse Ox 12/27/23 14:02 95 12/27/23 13:21 97.3 F 83 18 139/62 94 L 12/27/23 11:51 97.3 F 83 18 139/62 94 L 12/27/23 11:33 94 L 12/27/23 11:30 85 16 96 12/27/23 11:20 85 25 H 95 12/27/23 11:10 88 16 96 12/27/23 11:01 80 18 97 12/27/23 10:30 86 22 153/77 95 12/27/23 10:20 90 24 95 12/27/23 10:10 88 18 95 12/27/23 10:05 92 H 15 95 12/27/23 09:30 88 22 124/68 97 12/27/23 09:00 83 21 137/72 94 L 12/27/23 08:30 91 H 18 138/75 95 12/27/23 08:18 91 H 18 153/68 96 12/27/23 08:00 97 H 22 139/79 92 L 12/27/23 07:38 94 H 22 137/75 95 12/27/23 07:30 92 H 18 137/75 96 12/27/23 07:10 95 H 21 93 L 12/27/23 06:51 94 L 12/27/23 06:33 98.3 F 103 H 20 138/78 94 L General Appearance: no apparent distress Neurologic Exam: alert, oriented x 3, cooperative Eye Exam: PERRL/EOMI Ears, Nose, Throat Exam: normal ENT inspection Neck Exam: normal inspection Respiratory Exam: crackles/rales Cardiovascular Exam: regular rate/rhythm, normal heart sounds Gastrointestinal/Abdomen Exam: soft, normal bowel sounds Rectal Exam: deferred Back Exam: normal inspection Extremity Exam: swelling (BLE R>L 2+/1+) Skin Exam: normal color Results - Labs Lab/Micro Results: Lab Results-Last 24 Hours 12/27/23 12/27/23 12/27/23 Range/Units 06:55 06:55 06:55 WBC 14.1 H (4.23-9.07) x10^3/uL RBC 4.68 (4.63-6.08) x10^6/uL Hgb 13.9 (13.7-17.5) g/dL Hct 40.9 (40.1-51.0) % MCV 87.4 (79.0-92.2) fL MCH 29.7 (25.7-32.2) pg MCHC 34.0 (32.3-36.5) g/dL RDW 13.2 (11.6-14.4) % Plt Count 244 (163-337) x10^3/uL MPV 9.7 (9.4-12.4) fL Gran % 83.0 H (34.0-67.9) % Immature Gran % (Auto) 0.4 (0.001-0.429) % Nucleat RBC Rel Count 0.0 (0.00-0.2) % Eos # (Auto) 0.06 (0.04-0.54) x10^3/uL Immature Gran # (Auto) 0.06 H (0.001-0.031) x10^3u/L Absolute Lymphs (auto) 1.21 L (1.32-3.57) x10^3/uL Absolute Monos (auto) 1.03 H (0.30-0.82) x10^3/uL Absolute Nucleated RBC 0.00 (0.00-0.012) x10^3u/L Lymphocytes % 8.6 L (21.8-53.1) % Monocytes % 7.3 (5.3-12.2) % Eosinophils % 0.4 L (0.8-7.0) % Basophils % 0.3 (0.2-1.2) % Absolute Granulocytes 11.72 H (1.78-5.38) x10^3/uL Basophils # 0.04 (0.01-0.08) x10^3/uL D-Dimer 0.64 H* (0.0-0.50) mg/L Sodium 139 (135-145) mmol/L Potassium 3.8 (3.5-5.1) mmol/L Chloride 105 (98-107) mmol/L Carbon Dioxide 22 (22-30) mmol/L Anion Gap 15.2 H (5-15) MEQ/L BUN 15 (9-20) mg/dL Creatinine 0.88 (0.66-1.25) mg/dL Estimated GFR 93.7 ML/MIN Glucose 170 H (74-106) mg/dL Calcium 9.5 (8.4-10.2) mg/dL Total Bilirubin 1.20 (0.2-1.3) mg/dL AST 30 (17-59) U/L ALT 26 (0-50) U/L Alkaline Phosphatase 110 (38-126) U/L Troponin I (0.000-0.033) ng/mL Serum Total Protein 7.5 (6.3-8.2) g/dL Albumin 4.2 (3.5-5.0) g/dL Influenza Type A Ag (NEGATIVE) Influenza Type B Ag (NEGATIVE) RSV (PCR) (NEGATIVE) SARS-CoV-2 (PCR) (NEGATIVE) 12/27/23 12/27/23 12/27/23 Range/Units 06:55 07:14 11:00 WBC (4.23-9.07) x10^3/uL RBC (4.63-6.08) x10^6/uL Hgb (13.7-17.5) g/dL Hct (40.1-51.0) % MCV (79.0-92.2) fL MCH (25.7-32.2) pg MCHC (32.3-36.5) g/dL RDW (11.6-14.4) % Plt Count (163-337) x10^3/uL MPV (9.4-12.4) fL Gran % (34.0-67.9) % Immature Gran % (Auto) (0.001-0.429) % Nucleat RBC Rel Count (0.00-0.2) % Eos # (Auto) (0.04-0.54) x10^3/uL Immature Gran # (Auto) (0.001-0.031) x10^3u/L Absolute Lymphs (auto) (1.32-3.57) x10^3/uL Absolute Monos (auto) (0.30-0.82) x10^3/uL Absolute Nucleated RBC (0.00-0.012) x10^3u/L Lymphocytes % (21.8-53.1) % Monocytes % (5.3-12.2) % Eosinophils % (0.8-7.0) % Basophils % (0.2-1.2) % Absolute Granulocytes (1.78-5.38) x10^3/uL Basophils # (0.01-0.08) x10^3/uL D-Dimer (0.0-0.50) mg/L Sodium (135-145) mmol/L Potassium (3.5-5.1) mmol/L Chloride (98-107) mmol/L Carbon Dioxide (22-30) mmol/L Anion Gap (5-15) MEQ/L BUN (9-20) mg/dL Creatinine (0.66-1.25) mg/dL Estimated GFR ML/MIN Glucose (74-106) mg/dL Calcium (8.4-10.2) mg/dL Total Bilirubin (0.2-1.3) mg/dL AST (17-59) U/L ALT (0-50) U/L Alkaline Phosphatase (38-126) U/L Troponin I < 0.012 < 0.012 (0.000-0.033) ng/mL Serum Total Protein (6.3-8.2) g/dL Albumin (3.5-5.0) g/dL Influenza Type A Ag NEGATIVE (NEGATIVE) Influenza Type B Ag NEGATIVE (NEGATIVE) RSV (PCR) NEGATIVE (NEGATIVE) SARS-CoV-2 (PCR) NEGATIVE (NEGATIVE) - Radiology Impressions Radiology Exams & Impressions: Radiology Procedures Category Date Time Status CHEST WITH CONTRAST [CT] Stat Exams 12/27/23 07:49 Completed ECHO W/2D AND DOPPLER [US] Stat Exams 12/27/23 14:03 Ordered - Other Procedures and Tests Respiratory Therapy 12/27/23 07:09 Respiratory Therapy Assessment DAILY 12/27/23 14:01 Oxygen Nasal Cannula 2 lpm Assessment/Plan (1) Acute respiratory failure with hypoxia Current Visit: Yes Status: Acute Assessment & Plan: -Secondary to pneumonia -CTA negative for PE -demonstrating bilateral pleural effusion R>L. Diffuse bilateral groundglass airspace disease with bilateral effusions.Query large left atrium mass versus artifact. Echocardiogram recommended. with -Supplemental oxygen with goal spo2 > 92% -RT eval -NEBS prn/INH -Ceftriaxone/azithromycin given in ED, continue -solumedrol Code(s): J96.01 - ACUTE RESPIRATORY FAILURE WITH HYPOXIA (2) Bilateral pneumonia Current Visit: Yes Status: Acute Assessment & Plan: -See ARF Code(s): J18.9 - PNEUMONIA, UNSPECIFIED ORGANISM (3) Atrial mass Current Visit: Yes Status: Acute Assessment & Plan: -Echo, if confirmed will need transferred Code(s): I51.89 - OTHER ILL-DEFINED HEART DISEASES (4) HTN (hypertension) Current Visit: Yes Status: Acute Assessment & Plan: -stable continue home meds Code(s): I10 - ESSENTIAL (PRIMARY) HYPERTENSION (5) HLD (hyperlipidemia) Current Visit: Yes Status: Acute Assessment & Plan: -continue home meds VTE: lovenox PPI: protonix Dispo: 1-2 days Code status: full Code(s): E78.5 - HYPERLIPIDEMIA, UNSPECIFIED
[2023-12-27] MEDS ORDERED: TYLENOL 325 MG PO PRN (14:57)
[2023-12-27] MEDS ORDERED: Zofran 4 MG/2 ML VIAL IV PRN (14:57)
[2023-12-27] MEDS ORDERED: DUONEB 0.5-3 MG/3 ml Neb IH PRN (14:57)
[2023-12-27] MEDS ORDERED: xanAX 0.25 MG PO PRN (15:49)
[2023-12-27] MEDS: PROTONIX 40 MG IV IV SCH (16:28)
[2023-12-27] MEDS: THERAGRAN MULTIVITAMIN PO SCH (16:55)
[2023-12-27] MEDS: NORVASC 5 MG PO SCH (16:55)
[2023-12-27] MEDS: Lopressor 25MG Tab PO SCH (16:56)
[2023-12-27] MEDS: Lotensin PO SCH (16:56)
[2023-12-27] MEDS: Vitamin C 500 MG PO SCH (16:56)
[2023-12-27] MEDS: VITAMIN D PO SCH (16:57)
[2023-12-27] MEDS: ENOXAPARIN SODIUM SQ SCH (16:58)
[2023-12-27] MEDS ORDERED: solu-MEDROL IV SCH (18:00)
[2023-12-27] MEDS: solu-MEDROL 40 MG, Sterile H2O 10 ml 1 ML IV SCH (18:25)
[2023-12-27] MEDS: Lasix 40 MG/4 ML IV SCH (18:26)
[2023-12-27] MEDS: Zinc Gluconate 50 MG PO SCH (18:27)
[2023-12-27] MEDS ORDERED: NON-FORMULARY ITEM (Atorvastatin Calcium [Lipitor] 20 MG Tablet) PO SCH (22:00)
[2023-12-27] MEDS ORDERED: NON-FORMULARY ITEM (Aspirin [Aspirin] 81 MG Tablet) PO SCH (22:00)
[2023-12-27] MEDS: PLAVIX Tablet PO SCH (22:35)
[2023-12-27] MEDS: xanAX 0.25 MG PO PRN (22:36)
[2023-12-27] MEDS: ZOCOR 20MG PO SCH (22:36)
[2023-12-27] MEDS: ECOTRIN 81 MG PO SCH (22:36)
[2023-12-27] MEDS: Pepcid 20 MG PO PRN (22:42)
[2023-12-28 05:27] LABS: Absolute Neutrophil Ct (ANC) 19.26 x10^3/uL (1.78-5.38); BASOPHIL % 0.1 % (0.2-1.2); Basophil (Absolute #) 0.02 x10^3/uL (0.01-0.08); Eosinophil % 0.1 % (0.8-7.0); Eosinophil (Absolute #) 0.03 x10^3/uL (0.04-0.54); Hematocrit 37.3 % (40.1-51.0); Hemoglobin 12.6 g/dL (13.7-17.5); IMMATURE GRAN # 0.09 x10^3u/L (0.001-0.031); IMMATURE GRAN % 0.4 % (0.001-0.429); Lymphocyte (Absolute #) 0.94 x10^3/uL (1.32-3.57); Lymphocytes % 4.4 % (21.8-53.1); Mean Corpuscular Hemoglobin 29.7 pg (25.7-32.2); Mean Corpuscular Hgb Concent. 33.8 g/dL (32.3-36.5); Mean Platelet Volume 9.7 fL (9.4-12.4); Monocyte (Absolute #) 0.98 x10^3/uL (0.30-0.82); Monocytes % 4.6 % (5.3-12.2); Neutrophil % 90.4 % (34.0-67.9); Platelet Count 228 x10^3/uL (163-337); Red Blood Count 4.24 x10^6/uL (4.63-6.08); Red Cell Distribution Width 13.4 % (11.6-14.4); White Blood Count 21.3 x10^3/uL (4.23-9.07)
--- NOTE | 2023-12-28 05:27 | PCM.DS ---
Discharge Summary Date of Admission: 12/27/23 11:39 Date of Discharge: 12/28/23 Admitting Physician: SAMEER DANIELLE MD Primary Care Provider: MARIETTA BISHOP Allergies Allergies No Known Drug Allergies Allergy (Verified 12/27/23 06:51) Hospital Summary - Hospital Course Hospital Course: is a 68 year old male with a pmhx of [place], cardiac stents x 2, HTN, and HLD who presented to ED 12/27/23 with complaints of progressively worsening shortness of breath. Patient states onset was around 7 p.m last night. He states that he normally gets bloated after meals with some accompanying shortness of breath and thought this was the cause of the shortness of breath. Later that evening he began to experience chills and was awoken in the middle of the night unable to catch his breath. His pulse ox at home was registering his spo2 in the 70's which prompted to go to ED. Upon arrival to ED patient was hypoxic and tachycardic. CTA was negative for PE -demonstrating bilateral pleural effusion R>L. Diffuse bilateral groundglass airspace disease with bilateral effusions.Query large left atrium mass versus artifact. Echocardiogram recommended. Patient is RA at baseline and now requiring 2L of oxygen. Lab findings significant for leukocytosis with wbc at 14.1, GAP at 15.2. Resp. panel negative. DDimer 0.[address] negative for PE. Patient received Solumedrol, rocephin, and azithromycin in ED with noted improvement. 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 Patient to be transferred to higher level of care for evaluation. He has been accepted at [facility] by Dr. Mckeon. Patient is stable and agreeable to transfer. Discharge Note Latest Assessment & Plan (1) Acute respiratory failure with hypoxia Current Visit: Yes Status: Acute Assessment & Plan: -Secondary to pneumonia -CTA negative for PE -demonstrating bilateral pleural effusion R>L. Diffuse bilateral groundglass airspace disease with bilateral effusions.Query large left atrium mass versus artifact. Echocardiogram recommended. with -Supplemental oxygen with goal spo2 > 92% -RT eval -NEBS prn/INH -Ceftriaxone/azithromycin given in ED, continue -solumedrol Code(s): J96.01 - ACUTE RESPIRATORY FAILURE WITH HYPOXIA (2) Bilateral pneumonia Current Visit: Yes Status: Acute Assessment & Plan: -See ARF Code(s): J18.9 - PNEUMONIA, UNSPECIFIED ORGANISM (3) Atrial mass Current Visit: Yes Status: Acute Assessment & Plan: -Echo, if confirmed will need transferred Code(s): I51.89 - OTHER ILL-DEFINED HEART DISEASES (4) HTN (hypertension) Current Visit: Yes Status: Acute Assessment & Plan: -stable continue home meds Code(s): I10 - ESSENTIAL (PRIMARY) HYPERTENSION (5) HLD (hyperlipidemia) Current Visit: Yes Status: Acute Assessment & Plan: -continue home meds VTE: lovenox PPI: protonix Dispo: 1-2 days Code status: full I spent 35 minutes [id number] with the patient on the day of discharge performing discharge exam, discussing hospital stay and discharge instructions with patient and caregivers, preparation of discharge records, prescriptions & referral forms and addressing any questions/concerns the patient had as documented above. - Vitals & Intake/Output Vital Signs: Vital Signs Temperature 97.5 F 12/28/23 04:00 Pulse Rate 89 12/28/23 04:00 Respiratory Rate 17 12/28/23 04:00 Blood Pressure 118/61 12/28/23 04:00 O2 Sat by Pulse Oximetry 94 L 12/28/23 04:00 Intake & Output: Intake & Output 12/25/23 12/26/23 12/27/23 12/28/23 11:59 11:59 11:59 11:59 Intake Total 1300 Balance 1300 Weight 124.4 kg 124.1 kg - Lab Result Diagrams: 12/28/23 05:16 12/28/23 05:16 Lab Results-Last 24 Hrs: Lab Results-Last 24 Hours 12/27/23 12/27/23 12/27/23 Range/Units 06:55 06:55 06:55 WBC 14.1 H (4.23-9.07) x10^3/uL RBC 4.68 (4.63-6.08) x10^6/uL Hgb 13.9 (13.7-17.5) g/dL Hct 40.9 (40.1-51.0) % MCV 87.4 (79.0-92.2) fL MCH 29.7 (25.7-32.2) pg MCHC 34.0 (32.3-36.5) g/dL RDW 13.2 (11.6-14.4) % Plt Count 244 (163-337) x10^3/uL MPV 9.7 (9.4-12.4) fL Gran % 83.0 H (34.0-67.9) % Immature Gran % (Auto) 0.4 (0.001-0.429) % Nucleat RBC Rel Count 0.0 (0.00-0.2) % Eos # (Auto) 0.06 (0.04-0.54) x10^3/uL Immature Gran # (Auto) 0.06 H (0.001-0.031) x10^3u/L Absolute Lymphs (auto) 1.21 L (1.32-3.57) x10^3/uL Absolute Monos (auto) 1.03 H (0.30-0.82) x10^3/uL Absolute Nucleated RBC 0.00 (0.00-0.012) x10^3u/L Lymphocytes % 8.6 L (21.8-53.1) % Monocytes % 7.3 (5.3-12.2) % Eosinophils % 0.4 L (0.8-7.0) % Basophils % 0.3 (0.2-1.2) % Absolute Granulocytes 11.72 H (1.78-5.38) x10^3/uL Basophils # 0.04 (0.01-0.08) x10^3/uL D-Dimer 0.64 H* (0.0-0.50) mg/L Sodium 139 (135-145) mmol/L Potassium 3.8 (3.5-5.1) mmol/L Chloride 105 (98-107) mmol/L Carbon Dioxide 22 (22-30) mmol/L Anion Gap 15.2 H (5-15) MEQ/L BUN 15 (9-20) mg/dL Creatinine 0.88 (0.66-1.25) mg/dL Estimated GFR 93.7 ML/MIN Glucose 170 H (74-106) mg/dL Calcium 9.5 (8.4-10.2) mg/dL Total Bilirubin 1.20 (0.2-1.3) mg/dL AST 30 (17-59) U/L ALT 26 (0-50) U/L Alkaline Phosphatase 110 (38-126) U/L Troponin I (0.000-0.033) ng/mL NT-Pro-B Natriuret Pep (<300) pg/mL Serum Total Protein 7.5 (6.3-8.2) g/dL Albumin 4.2 (3.5-5.0) g/dL Influenza Type A Ag (NEGATIVE) Influenza Type B Ag (NEGATIVE) RSV (PCR) (NEGATIVE) SARS-CoV-2 (PCR) (NEGATIVE) 12/27/23 12/27/23 12/27/23 Range/Units 06:55 06:55 07:14 WBC (4.23-9.07) x10^3/uL RBC (4.63-6.08) x10^6/uL Hgb (13.7-17.5) g/dL Hct (40.1-51.0) % MCV (79.0-92.2) fL MCH (25.7-32.2) pg MCHC (32.3-36.5) g/dL RDW (11.6-14.4) % Plt Count (163-337) x10^3/uL MPV (9.4-12.4) fL Gran % (34.0-67.9) % Immature Gran % (Auto) (0.001-0.429) % Nucleat RBC Rel Count (0.00-0.2) % Eos # (Auto) (0.04-0.54) x10^3/uL Immature Gran # (Auto) (0.001-0.031) x10^3u/L Absolute Lymphs (auto) (1.32-3.57) x10^3/uL Absolute Monos (auto) (0.30-0.82) x10^3/uL Absolute Nucleated RBC (0.00-0.012) x10^3u/L Lymphocytes % (21.8-53.1) % Monocytes % (5.3-12.2) % Eosinophils % (0.8-7.0) % Basophils % (0.2-1.2) % Absolute Granulocytes (1.78-5.38) x10^3/uL Basophils # (0.01-0.08) x10^3/uL D-Dimer (0.0-0.50) mg/L Sodium (135-145) mmol/L Potassium (3.5-5.1) mmol/L Chloride (98-107) mmol/L Carbon Dioxide (22-30) mmol/L Anion Gap (5-15) MEQ/L BUN (9-20) mg/dL Creatinine (0.66-1.25) mg/dL Estimated GFR ML/MIN Glucose (74-106) mg/dL Calcium (8.4-10.2) mg/dL Total Bilirubin (0.2-1.3) mg/dL AST (17-59) U/L ALT (0-50) U/L Alkaline Phosphatase (38-126) U/L Troponin I < 0.012 (0.000-0.033) ng/mL NT-Pro-B Natriuret Pep 1150 (<300) pg/mL Serum Total Protein (6.3-8.2) g/dL Albumin (3.5-5.0) g/dL Influenza Type A Ag NEGATIVE (NEGATIVE) Influenza Type B Ag NEGATIVE (NEGATIVE) RSV (PCR) NEGATIVE (NEGATIVE) SARS-CoV-2 (PCR) NEGATIVE (NEGATIVE) 12/27/23 12/27/23 Range/Units 11:00 15:48 WBC (4.23-9.07) x10^3/uL RBC (4.63-6.08) x10^6/uL Hgb (13.7-17.5) g/dL Hct (40.1-51.0) % MCV (79.0-92.2) fL MCH (25.7-32.2) pg MCHC (32.3-36.5) g/dL RDW (11.6-14.4) % Plt Count (163-337) x10^3/uL MPV (9.4-12.4) fL Gran % (34.0-67.9) % Immature Gran % (Auto) (0.001-0.429) % Nucleat RBC Rel Count (0.00-0.2) % Eos # (Auto) (0.04-0.54) x10^3/uL Immature Gran # (Auto) (0.001-0.031) x10^3u/L Absolute Lymphs (auto) (1.32-3.57) x10^3/uL Absolute Monos (auto) (0.30-0.82) x10^3/uL Absolute Nucleated RBC (0.00-0.012) x10^3u/L Lymphocytes % (21.8-53.1) % Monocytes % (5.3-12.2) % Eosinophils % (0.8-7.0) % Basophils % (0.2-1.2) % Absolute Granulocytes (1.78-5.38) x10^3/uL Basophils # (0.01-0.08) x10^3/uL D-Dimer (0.0-0.50) mg/L Sodium (135-145) mmol/L Potassium (3.5-5.1) mmol/L Chloride (98-107) mmol/L Carbon Dioxide (22-30) mmol/L Anion Gap (5-15) MEQ/L BUN (9-20) mg/dL Creatinine (0.66-1.25) mg/dL Estimated GFR ML/MIN Glucose (74-106) mg/dL Calcium (8.4-10.2) mg/dL Total Bilirubin (0.2-1.3) mg/dL AST (17-59) U/L ALT (0-50) U/L Alkaline Phosphatase (38-126) U/L Troponin I < 0.012 < 0.012 (0.000-0.033) ng/mL NT-Pro-B Natriuret Pep (<300) pg/mL Serum Total Protein (6.3-8.2) g/dL Albumin (3.5-5.0) g/dL Influenza Type A Ag (NEGATIVE) Influenza Type B Ag (NEGATIVE) RSV (PCR) (NEGATIVE) SARS-CoV-2 (PCR) (NEGATIVE) - Radiology Exams Ordered Rad Exams-Entire Visit: Radiology Procedures Category Date Time Status CHEST WITH CONTRAST [CT] Stat Exams 12/27/23 07:49 Completed ECHO W/2D AND DOPPLER [US] Stat Exams 12/27/23 14:03 Taken - Procedures and Test Procedures and Tests throughout Hospitalization: Therapy Orders & Screens 12/27/23 07:09 Respiratory Therapy Assessment DAILY Comment: 12/27/23 13:53 RT Screen per Nursing Assess ONCE Comment: Protocol Order Physician Instructions: Greater than 3 points order RT Admission Screen Reason For Exam: Triggered on Admission Diagnosis: Bilateral pneumonia, left atrial mass Diagnosis: Bilateral pneumonia, left atrial mass Pneumonia: Yes Home O2: No Asthma: No CHF: No Home CPAP/BIPAP: Yes Home Nebs/MDI: No Total Points: 8 ST Screen per Nursing Assess ONCE Comment: Protocol Order Physician Instructions: Greater than [address] Admission Screening Reason For Exam: Triggered on Admission Diagnosis: Bilateral pneumonia, left atrial mass CVA/Dyshpagia/Aphasia: No Cognitive Deficits: No Dehydration/Nutrition Deficit: No Reflux: No Oral-Motor Difficulties: No Pneumonia: Yes Halfway Resident: No Total Points: 5 12/27/23 14:01 Oxygen Nasal Cannula 2 lpm Comment: Diagnosis: Bilateral pneumonia, left atrial mass 12/27/23 14:57 Respiratory Therapy Consult ONCE Comment: Reason For Exam: Diagnosis: Bilateral pneumonia, left atrial mass Discharge Exam General Appearance: no apparent distress Neurologic Exam: alert, oriented x 3, cooperative Eye Exam: PERRL Ears, Nose, Throat Exam: normal ENT inspection Neck Exam: normal inspection Respiratory Exam: crackles/rales Cardiovascular Exam: regular rate/rhythm, normal heart sounds Gastrointestinal/Abdomen Exam: soft, normal bowel sounds Male Genitalia Exam: deferred Rectal Exam: deferred Back Exam: normal inspection Extremity Exam: normal inspection Skin Exam: normal color Final Diagnosis/Problem List - Final Discharge Diagnosis/Problem (1) Acute respiratory failure with hypoxia Current Visit: Yes Status: Acute Code(s): J96.01 - ACUTE RESPIRATORY FAILURE WITH HYPOXIA (2) Bilateral pneumonia Current Visit: Yes Status: Acute Code(s): J18.9 - PNEUMONIA, UNSPECIFIED O RGANISM (3) Atrial mass Current Visit: Yes Status: Acute Code(s): I51.89 - OTHER ILL-DEFINED HEART DISEASES (4) HTN (hypertension) Current Visit: Yes Status: Acute Code(s): I10 - ESSENTIAL (PRIMARY) HYPERTENSION (5) HLD (hyperlipidemia) Current Visit: Yes Status: Acute Code(s): E78.5 - HYPERLIPIDEMIA, UNSPECIFI ED - Discharge Disposition: Home, Self-Care Condition: Stable Prescriptions: New Albuterol/Ipratropium 3ml Neb* [DUONEB 0.5-3 MG/3 ml Neb] 3 ml IH Q6HRT PRN PRN Reason: Shortness Of Breath/Wheezing Furosemide 40 mg/4 ml [Lasix 40 MG/4 ML] 40 mg IV Q12H Famotidine 20 mg [Pepcid 20 MG] 20 mg PO BIDPRN PRN tablet PRN Reason: Indigestion Pantoprazole 40 mg [Protonix 40 mg IV] 40 mg IV DAILY Ceftriaxone Sodium [ROCEPHIN 1 GM / 100 ML NaCl] 1 gm IV Q24H10 iv piggy Methylprednisolone Sod Suc 40M [solu-MEDROL] 40 mg IV Q12H Azithromycin 500 mg/250 ml [Zithromax 500 MG/ 250 ML NaCl Premix] 500 mg IV Q24H10 iv piggy Ondansetron HCl 4 mg/2 ml [Zofran 4 MG/2 ML VIAL] 4 mg IV Q6H PRN PRN PRN Reason: Nausea/Vomiting Continue Amlodipine Besylate/Benazepril [Amlodipine-Benazepril 5-20 mg] 1 tab PO DAILY Atorvastatin Calcium [Lipitor] 20 mg PO HS ALPRAZolam 0.25 MG [xanAX 0.25 MG] 0.25 mg PO Q8HPRN PRN PRN Reason: Anxiety Metoprolol Tartrate 25 mg [Lopressor 25MG Tab] 25 mg PO DAILY Aspirin 81 mg PO HS Zinc Gluconate [Zinc] 50 mg PO DAILY Saw Richards 450 mg PO DAILY Multivit-Min/FA/Lycopen/Lutein [Centrum Silver Tablet] 1 tab PO DAILY Ascorbic Acid [Vitamin C] 1,000 mg PO DAILY Cholecalciferol (Vitamin D3) [Vitamin D3] 125 mcg PO DAILY Ibuprofen 800 mg PO TIDPRN Clopidogrel Bisulfate [PLAVIX Tablet] 75 mg PO HS Pantoprazole Sodium [Protonix] 40 mg PO DAILY Follow up with: MARIETTA BISHOP MD [Primary Care Provider] -
[2023-12-28 05:42] LABS: ALBUMIN 3.9 g/dL (3.5-5.0); ANION GAP 12.4 MEQ/L (5-15); Calcium 9.3 mg/dL (8.4-10.2); Creatinine 1 0.76 mg/dL (0.66-1.25); EST GLOMERULAR FILTRATION RATE 97.9 ML/MIN; Total Protein 7.1 g/dL (6.3-8.2)
[2023-12-28] MEDS ORDERED: Lasix 40 MG/4 ML ONE (06:35)
[2023-12-28 07:05] VITALS: RESP 16
[2023-12-28] MEDS: ROCEPHIN 1 GM / 100 ML NaCl 1 GM/100 ML IVPB IV SCH (09:10)
[2023-12-28] MEDS ORDERED: Protonix 40MG Tablet PO SCH (10:00)
[2023-12-28] MEDS ORDERED: NON-FORMULARY ITEM (Ascorbic Acid [Vitamin C] 1,000 MG Tablet) PO SCH (10:00)
[2023-12-28] MEDS ORDERED: NON-FORMULARY ITEM (Multivit-Min/Fa/Lycopen/Lutein [Centrum Silver Tablet] 1 EACH Tablet) PO SCH (10:00)
[2023-12-28] MEDS ORDERED: NON-FORMULARY ITEM (Zinc Gluconate 50 MG Tablet) PO SCH (10:00)
[2023-12-28] MEDS ORDERED: NON-FORMULARY ITEM (Cholecalciferol (Vitamin D3) [Vitamin D3] 125 MCG Capsule) PO SCH (10:00)
[2023-12-28] MEDS: Zithromax 500 MG/ 250 ML NaCl Premix 500 MG/250 ML IVPB IV SCH (10:06)
[2023-12-28 11:54] VITALS: BP 109/55; PULSE 74; TEMP 98; O2SAT 94
== END 2023-12-28 15:40 ==
LOC: ED 06:28 → MED SURG 11:39
PROVIDERS: ADMIT Internal Medicine; ATTEND Internal Medicine
DX: J96.01 Acute respiratory failure with hypoxia (principal); J18.9 Pneumonia, unspecified organism; I51.89 Other ill-defined heart diseases; I10 Essential (primary) hypertension; E78.5 Hyperlipidemia, unspecified; K44.9 Diaphragmatic hernia without obstruction or gangrene; Z79.899 Other long term (current) drug therapy; I25.2 Old myocardial infarction
CPT/HCPCS: 0241U; 36000; 36415; 71260; 80053; 83880; 84484; 85025; 85379; 87040; 93005; 93041; 93306; 94640; 94760; 94762; 96374; 96375; 99285; J0456; J0696; J1650; J1940; J2919; J7609; Q3014; A9270-GY